=== PATIENT | female | born 1960 | race Caucasian/White ===

== ENCOUNTER → 2018-12-14 12:16 | Outpatient (CLI) | payer OTHER, SELFPAY ==
--- NOTE | 2018-12-14 | DI.US.S_ITS ---
PROCEDURE: US THYROID INDICATIONS: THYROID NODULE TECHNIQUE: Real-time scanning was performed of the thyroid gland, with image documentation. COMPARISON: None. FINDINGS: Right: Thyroid lobe measures 2.6 x 1 x 0.9 cm, and is homogeneous in echotexture. Left: Thyroid lobe measures 2.7 x 0.8 x 1.1 cm. Isthmus: 2 mm thick. Nodule number: 1 Location: Left mid thyroid Size: 1.3 x 0.7 x 0.6 cm, previously measured 1.4 x 0.1 x 0.7 cm. Composition: Solid Echogenicity: Hypoechoic Shape: wider than tall. Margins: Smooth Echogenic foci: None Total points: 4 ACR TI-RADS category: 4, moderately suspicious. An ultrasound followup is recommended in 1, 2, 3, and 5 years for a nodule of this size. Nodule number: 2 Location: Left inferior thyroid Size: 0.9 x 0.5 x 0.6 cm, previously measuring 0.9 x 0.6 x 0.7 cm. Composition: Solid Echogenicity: Hypoechoic Shape: wider than tall. Margins: Smooth Echogenic foci: None Total points: 4. ACR TI-RADS category: 4, moderately suspicious. By published criteria, no followup is recommended for a nodule of this size. IMPRESSION: 2 left-sided thyroid lesions are seen, which are stable compared to 06/07/17. Continued ultrasound followup is recommended, with the next followup in 1 year. ACR TI-RADS definitions and recommendations: TI-RADS 1 (benign): 0 points. FNA not needed. TI-RADS 2 (not suspicious): 2 points. FNA not needed. TI-RADS 3 (mildly suspicious): 3 points. * FNA if 2.5 cm or larger, follow up if 1.5 cm or larger (at 1, 3, and 5 years). TI-RADS 4 (moderately suspicious): 4-6 points. * FNA if 1.5 cm or larger, follow up if 1 cm or larger (at 1, 2, 3, and 5 years). TI-RADS 5 (highly suspicious): 7 points or more. * FNA if 1 cm or larger, follow up if 0.5 cm or larger (every year for 5 years). Dictated by: Jose Alfredo Bautista M.D. on 12/14/2018 at 12:41 Approved by: Jose Alfredo Bautista M.D. on 12/14/2018 at 12:45
== END ==
PROVIDERS: PCP Family Medicine; Visit Provider Family Medicine
DX: E04.2 Nontoxic multinodular goiter (principal)
CPT/HCPCS: 76536

== ENCOUNTER → 2018-12-21 15:03 | Outpatient (CLI) | payer OTHER, SELFPAY ==
--- NOTE | 2018-12-21 | DI.MG.S_ITS ---
BILATERAL DIGITAL SCREENING MAMMOGRAM 3D/2D WITH CAD: 12/21/2018 CLINICAL: Routine screening. Comparison is made to exams dated: 07/08/2016 mammogram, 05/29/2015 mammogram, and 03/19/2014 mammogram - [facility]. There are scattered fibroglandular elements in both breasts. Current study was also evaluated with a Computer Aided Detection (CAD) system. No significant masses, calcifications, or other findings are seen in either breast. There has been no significant interval change. IMPRESSION: NEGATIVE There is no mammographic evidence of malignancy. A 1 year screening mammogram is recommended. This exam was interpreted at Station ID: [id number]. NOTE: For mammograms, a report in lay terms will be sent to the patient. Approximately 15% of breast malignancies will not be visualized mammographically. In the management of a palpable breast mass, a negative mammogram must not discourage biopsy of a clinically suspicious lesion. Electronically Signed By: Haydee bennett/victorino:12/21/2018 21:00:46 copy to: Filemon Dudley letter sent: Normal Exam ACR BI-RADS Category 1: Negative 3341F
== END ==
PROVIDERS: PCP Family Medicine; Visit Provider Family Medicine
DX: Z12.31 Encounter for screening mammogram for malignant neoplasm of breast (principal)
CPT/HCPCS: 77063; 77067

== ENCOUNTER → 2019-02-14 14:52 | Outpatient (CLI) | payer OTHER, SELFPAY ==
--- NOTE | 2019-02-14 | DI.RAD.S_ITS ---
PROCEDURE: XR LUMBAR SPINE 2-3V INDICATIONS: LOWER BACK PAIN TECHNIQUE: 3 views of the lumbar spine were acquired. COMPARISON: None. FINDINGS: Bones: 5 [id number] vertebrae are present. There is grade one anterolisthesis at L4-L5. No vertebral body compression fractures. No suspicious bony lesions. There is mild degenerative disc disease at L2-L3 and L3-L4, and moderate degenerative disc disease at L4-L5. Moderate facet arthropathy at L4 L5 and L5-S1. Soft tissues: Overlying bowel gas pattern is normal. No suspicious soft tissue calcifications. IMPRESSION: Degenerative disc and facet disease in lumbar spine. Dictated by: Abner De Jesus M.D. on 02/14/2019 at 17:31 Approved by: Abner De Jesus M.D. on 02/14/2019 at 17:33
== END ==
PROVIDERS: PCP Family Medicine; Visit Provider Family Medicine
DX: M54.5 Low back pain (principal); M51.36 Other intervertebral disc degeneration, lumbar region; M47.816 Spondylosis without myelopathy or radiculopathy, lumbar region; M47.817 Spondylosis without myelopathy or radiculopathy, lumbosacral region
CPT/HCPCS: 72100

== ENCOUNTER → 2019-08-17 16:40 | Outpatient (CLI) | payer OTHER, SELFPAY ==
[2019-08-17 18:25] LABS: Urine N gonorrhoeae NOT DETECTED
[2019-08-17 18:26] LABS: Urine Chlamydia NOT DETECTED
== END ==
PROVIDERS: PCP Family Medicine; Visit Provider Nurse Practitioner
DX: Z11.3 Encounter for screening for infections with a predominantly sexual mode of transmission (principal)
CPT/HCPCS: 87255; 87491; 87591

== ENCOUNTER → 2019-08-17 16:54 | Outpatient (CLI) | payer OTHER, SELFPAY ==
[2019-08-17 18:37] LABS: HIV 1 & 2 Ab/Ag 4th Gen Combo NEGATIVE (NEGATIVE); Hep C Virus Ab w/Reflex Quant NEGATIVE s/c (NEGATIVE)
[2019-08-19 12:49] LABS: HSV 1 IgM Screen Negative (Negative); HSV 2 IgM Screen Negative (Negative)
[2019-08-19 20:51] LABS: RPR Screen Nonreactive (Nonreactive)
== END ==
PROVIDERS: PCP Family Medicine; Visit Provider Nurse Practitioner
DX: Z11.3 Encounter for screening for infections with a predominantly sexual mode of transmission (principal)
CPT/HCPCS: 36415; 86592; 86695; 86696; 86803; 87255; 87389; 87491; 87591

== ENCOUNTER → 2020-02-05 13:39 | Outpatient (CLI) | payer OTHER, SELFPAY ==
--- NOTE | 2020-02-05 | DI.US.S_ITS ---
PROCEDURE: US THYROID INDICATIONS: THYROID NODULE, HYPOTHYROIDISM TECHNIQUE: Real-time scanning was performed of the thyroid gland, with image documentation. COMPARISON: [facility], US, US THYROID, 12/14/2018, 12:32. FINDINGS: Right: Thyroid lobe measures 2.3 x 1.2 x 1.0 cm, and is diffusely heterogeneous in echotexture. Left: Thyroid lobe measures 3.8 x 0.9 x 1.3 cm, and is diffusely heterogeneous in echotexture. Isthmus: 3.0 mm thick. Nodule number: 1 Location: Left mid Size: Unchanged 1.3 x 0.6 x 0.8 cm. Composition: Solid Echogenicity: Hypoechoic Shape: wider than tall. Margins: Smooth Echogenic foci: None Total points: 4 ACR TI-RADS category: Moderately suspicious Nodule number: 2 Location: Left inferior Size: Unchanged at 0.9 x 0.4 x 0.6 cm Composition: Solid Echogenicity: Hypoechoic Shape: wider than tall. Margins: Smooth Echogenic foci: None Total points: 4 ACR TI-RADS category: Moderately suspicious IMPRESSION: Diffusely heterogeneous thyroid and stable appearance of left thyroid nodules. Recommend continued followup ultrasound as detailed below. ACR TI-RADS definitions and recommendations: TI-RADS 1 (benign): 0 points. FNA not needed. TI-RADS 2 (not suspicious): 2 points. FNA not needed. TI-RADS 3 (mildly suspicious): 3 points. * FNA if 2.5 cm or larger, follow up if 1.5 cm or larger (at 1, 3, and 5 years). TI-RADS 4 (moderately suspicious): 4-6 points. * FNA if 1.5 cm or larger, follow up if 1 cm or larger (at 1, 2, 3, and 5 years). TI-RADS 5 (highly suspicious): 7 points or more. * FNA if 1 cm or larger, follow up if 0.5 cm or larger (every year for 5 years). Dictated by: Blake Najera [facility] Interpreted: Chris Joya MD on 02/05/2020 at 16:38 Approved by: Chris Joya M.D. on 02/05/2020 at 17:40
== END ==
PROVIDERS: PCP Family Medicine; Referring Provider Family Medicine; Visit Provider Family Medicine
DX: E04.2 Nontoxic multinodular goiter (principal); E03.9 Hypothyroidism, unspecified
CPT/HCPCS: 76536

== ENCOUNTER → 2020-02-26 11:16 | Outpatient (CLI) | payer OTHER, SELFPAY ==
--- NOTE | 2020-02-26 | DI.CT.S_ITS ---
PROCEDURE: CT SINUS SCREEN WO CON INDICATIONS: Deviated nasal septum TECHNIQUE: Noncontrast 3.0 mm axial images acquired from the frontal sinuses to the mid-sella, with coronal and sagittal reformats. For radiation dose reduction, the following was used: automated exposure control, adjustment of mA and/or kV according to patient size. COMPARISON: None. FINDINGS: Image quality: Excellent. Maxillary Sinuses: No bony remodeling or destruction. Sinuses are clear. Ethmoid Air Cells: No bony remodeling or destruction. Sinuses are clear. Sphenoid Sinuses: No bony remodeling or destruction. Sinuses are clear. Frontal Sinuses: No bony remodeling or destruction. Sinuses are clear. Ostiomeatal Complexes: Ostiomeatal complexes are patent. No Onesimo cells. Miscellaneous: Visualized intra-orbital contents are normal. No carmelita bullosa or paradoxical turbinate curvature. There is mild to moderate rightward nasal septal deviation. IMPRESSION: No significant active paranasal sinus disease is seen. Mild to moderate rightward nasal septal deviation is seen. Dictated by: Jose Alfredo Bautista M.D. on 02/26/2020 at 12:14 Approved by: Jose Alfredo Bautista M.D. on 02/26/2020 at 12:15
== END ==
PROVIDERS: PCP Family Medicine; Referring Provider Otolaryngology; Visit Provider Otolaryngology
DX: J34.89 Other specified disorders of nose and nasal sinuses (principal); J34.2 Deviated nasal septum
CPT/HCPCS: 70486

== ENCOUNTER → 2020-03-01 14:07 | Outpatient (CLI) | payer OTHER, SELFPAY ==
[2020-03-02 09:21] LABS: COVID19 Sendout Not Detected (Not Detect)
== END ==
PROVIDERS: PCP Family Medicine; Visit Provider Physician Assistant
DX: Z01.812 Encounter for preprocedural laboratory examination (principal)
CPT/HCPCS: 87635

== ENCOUNTER 2020-03-04 12:27 | Day surgery (SDC) | payer OTHER, SELFPAY ==
--- NOTE | 2020-03-04 | PATH_ITS ---
[facility] Accession Number: [id number] . 01 Material submitted: . PART A: colon - ASCENDING COLON BIOPSIES PART B: colon - TRANSVERSE COLON BIOPSIES PART C: colon - DESCENDING COLON BIOPSIES PART D: colon - SIGMOID COLON BIOPSIES PART E: rectum - RECTAL BIOPSIES PART F: rectum - RECTAL POLYP BIOPSIES . 02 Diagnosis: A-E: Ascending, Transverse, Descending, Sigmoid Colon and Rectum, Biopsies: Colonic mucosa with no diagnostic abnormality. Negative for active, chronic, and microscopic colitis. Negative for dysplasia and malignancy. . F. Rectal Polyp, Biopsy: Tubular adenoma. [facility] 03/05/2020 1357 Local . 02 Electronically signed: . Iván Mayes MD, PhD, Pathologist NPI- [id number] . 01 Gross description: . Part A: ASCENDING COLON BIOPSIES: Received in formalin are multiple fragment(s) of devine, soft tissue measuring 0.1 x 0.1 x 0.1 cm to 0.2 x 0.2 x 0.2 cm submitted entirely in 1 cassette(s) Part B: TRANSVERSE COLON BIOPSIES: Received in formalin are 3 fragment(s) of devine, soft tissue measuring 0.1 x 0.1 x 0.1 cm to 0.2 x 0.1 x 0.1 cm submitted entirely in 1 cassette(s) Part C: DESCENDING COLON BIOPSIES: Received in formalin are 4 fragment(s) of devine, soft tissue measuring 0.1 x 0.1 x 0.1 cm to 0.3 x 0.2 x 0.2 cm submitted entirely in 1 cassette(s) Part D: SIGMOID COLON BIOPSIES: Received in formalin are 4 fragment(s) of devine, soft tissue measuring 0.1 x 0.1 x 0.1 cm to 0.3 x 0.2 x 0.2 cm submitted entirely in 1 cassette(s) Part E: RECTAL BIOPSIES: Received in formalin is 1 fragment(s) of devine, soft tissue measuring 0.2 x 0.2 x 0.1 cm submitted entirely in 1 cassette(s) Part F: RECTAL POLYP BIOPSIES: Received in formalin are 3 fragment(s) of devine, soft tissue measuring 0.1 x 0.1 x 0.1 cm to 0.2 x 0.2 x 0.2 cm submitted entirely in 1 cassette(s) /SHARON 03/05/2020 0114 Local . 02 Pathologist provided ICD-10: R19.4, D12.8 . 02 CPT . 593778, 000478, 659457, 199817, 830219, 436004 Performed at: 01 [facility] [address] [id number] MD Mu Christian MD Phone: [phone] Performed at: 02 [facility] [address] [place], [place] [id number] MD Genoveva Perez MD Phone: [phone]
--- NOTE | 2020-03-04 11:53 | PM.PREOP ---
Pre-operative Note COVID-19 COVID-19 status: Negative Result date/Date tested (Pos, Neg/Pending): 03/01/20 Interval Note History & Physical reviewed/Exam performed by Physician: Yes Changes to H&P: No ASA Class (for procedural sedation): III
--- NOTE | 2020-03-04 11:54 | PM.OP.ENDO ---
Operative Date/Time/Diagnoses Date of procedure: 03/04/20 Time of procedure: 13:46 Pre-op diagnosis: 1. Chronic diarrhea 2. Screening for colon cancer Post-op diagnosis: other (1. Sigmoid diverticulosis, mild, 2. Rectal polyp, 2 cm, unresected, targeted biopsy taken) Procedure & Clinicians Study performed: Colonoscopy Same procedure as scheduled: Yes Indications: 1. Chronic diarrhea 2. Screening for colon cancer Surgeon: Bettie Sorensen Procedure Notes SCOAP/Timeout: 13:46 Procedure in detail: ENDOSCOPIST: Bettie Sorensen MD Sedation RN: Savannah Barksdale RN Sedation start time: 13:46 Sedation end time: 14:28 PROCEDURE: Colonoscopy with biopsy INDICATIONS: 1. Chronic diarrhea 2. Screening for colon cancer MEDICATION: Levsin 0.125 mg sublingual, incremental doses of Versed and fentanyl until appropriate level sedation achieved. ASA CLASS: 2 CECAL WITHDRAWAL TIME: 22 minutes COMPLICATIONS: None. EXTENT OF PROCEDURE: Cecum. QUALITY OF PREP: Good with portions of liquid stool. PROCEDURE: Prior to insertion of the colonoscope, a digital rectal examination was accomplished with circumferential palpation of the distal rectal mucosa without significant findings being noted. The high-definition pediatric colonoscope was passed into the rectum in the usual fashion and advanced over to the cecum without difficulty. The ileocecal valve, appendiceal stoma, and medial wall all could be inspected and no abnormalities were seen. Random biopsies were taken throughout withdrawal. ASCENDING COLON: As the colonoscope was withdrawn, care was taken to expose and inspect the haustral folds and no abnormalities were seen. HEPATIC FLEXURE: Normal no polyps, diverticula or other abnormalities. TRANSVERSE COLON: Normal no polyps, diverticula or other abnormalities. DESCENDING COLON: Normal no polyps, diverticula or other abnormalities. SIGMOID COLON: Minor diverticulosis, otherwise normal, no polyps, diverticula or other abnormalities. RECTUM: A 2 cm polyp was noted at the anal verge, sessile and spreading. It was lifted with methylene blue and there was a central area that did not lift. Lesion was pulsatile and bled briskly after targeted biopsy taken x 2. Hemostasis was achieved after application of cold water and suction. Lesion was left unresected secondary to risk of perforation and bleeding. J maneuver was produced. There was no significant perianal disease. The J maneuver was broken. The remainder of the rectum was inspected and there was no external hemorrhoid disease. The scope was withdrawn. IMPRESSION: 1. Rectal polyp x1, 2 cm, lifted with methylene blue with central area that did not lift, friable, unresected, targeted biopsy taken x2. 2. Sigmoid diverticulosis, minor PLAN: 1. Follow-up in clinic status post pathology results. The possibility of a missed lesion including a malignancy has been discussed with the patient previously. Potential alarm symptoms have been discussed and should be reported immediately. Complications: none Post-procedure Recommendations: Will call with biopsy results Follow up: weeks (2) Disposition: PACU
[2020-03-04] MEDS: LACTATED RINGERS 1,000 ML 200 ML IV (12:50)
[2020-03-04] MEDS: HYOSCYAMINE 0.125 MG TABLET PO (12:52)
[2020-03-04 12:53] VITALS: BP 143/82; PULSE 80; RESP 20; TEMP 36.9; O2SAT 97; BMI 39.8
[2020-03-04] MEDS: MIDAZOLAM 5 MG/5 ML VIAL IV (13:40)
[2020-03-04] MEDS: fentaNYL 250 MCG/5 ML INJ IV (13:45)
[2020-03-04 14:32] VITALS: BP 131/79; PULSE 66; RESP 18; TEMP 36.7; O2SAT 97
[2020-03-04 14:37] VITALS: BP 130/80; PULSE 81; RESP 16; O2SAT 97
[2020-03-04 14:44] VITALS: BP 140/72; PULSE 75; RESP 14; TEMP 36.4; O2SAT 98
[2020-03-04 15:16] VITALS: BP 143/79; PULSE 71; RESP 16; TEMP 36.6; O2SAT 98
--- NOTE | 2020-03-04 15:30 | SUR.PHASEII ---
Stable phase 2, ride called pt left when ready and left in stable condition.
== END 2020-03-04 15:20 | disposition home or self-care (01) ==
PROVIDERS: PCP Family Medicine; Referring Provider Student in an Organized Health Care Education/Training Program; Visit Provider Student in an Organized Health Care Education/Training Program
PROC: 0DJD8ZZ Inspection of Lower Intestinal Tract, Via Natural or Artificial Opening Endoscopic (ICD-10-PCS; CPT 45378; principal; 2020-03-04 13:15)
DX: K57.30 Diverticulosis of large intestine without perforation or abscess without bleeding (principal); D12.8 Benign neoplasm of rectum
CPT/HCPCS: 45381; 45380; J2250; J3010

== ENCOUNTER → 2020-03-20 15:13 | Outpatient (CLI) | payer OTHER, SELFPAY ==
[2020-03-22 08:10] LABS: COVID19 Sendout Not Detected (Not Detect)
== END ==
PROVIDERS: PCP Family Medicine; Visit Provider Physician Assistant
DX: Z11.59 Encounter for screening for other viral diseases (principal)
CPT/HCPCS: 87635

== ENCOUNTER → 2020-03-21 14:19 | Outpatient (CLI) | payer OTHER, SELFPAY ==
--- NOTE | 2020-03-21 | DI.MG.S_ITS ---
BILATERAL DIGITAL SCREENING MAMMOGRAM 3D/2D WITH CAD: 03/21/2020 CLINICAL: Routine screening. Comparison is made to exams dated: 12/21/2018 mammogram, 07/08/2016 mammogram, and 05/29/2015 mammogram - [facility]. There are scattered fibroglandular elements in both breasts. Current study was also evaluated with a Computer Aided Detection (CAD) system. No significant masses, calcifications, or other findings are seen in either breast. There has been no significant interval change. IMPRESSION: NEGATIVE There is no mammographic evidence of malignancy. A 1 year screening mammogram is recommended. This exam was interpreted at Station ID: [id number]. NOTE: For mammograms, a report in lay terms will be sent to the patient. Approximately 15% of breast malignancies will not be visualized mammographically. In the management of a palpable breast mass, a negative mammogram must not discourage biopsy of a clinically suspicious lesion. Electronically Signed By: Chris connor/victorino:03/21/2020 17:25:03 copy to: Filemon Dudley letter sent: Normal Exam ACR BI-RADS Category 1: Negative 3341F
== END ==
PROVIDERS: PCP Student in an Organized Health Care Education/Training Program; Referring Provider Family Medicine; Visit Provider Family Medicine
DX: Z12.31 Encounter for screening mammogram for malignant neoplasm of breast (principal)
CPT/HCPCS: 77063; 77067

== ENCOUNTER → 2020-04-12 15:10 | Outpatient (CLI) | payer OTHER, SELFPAY ==
[2020-04-13 08:33] LABS: COVID19 Sendout Not Detected (Not Detect)
== END ==
PROVIDERS: PCP Student in an Organized Health Care Education/Training Program; Visit Provider Physician Assistant
DX: Z11.59 Encounter for screening for other viral diseases (principal)
CPT/HCPCS: 87635

== ENCOUNTER 2020-04-15 09:57 | Day surgery (SDC) | payer OTHER, SELFPAY ==
[2020-04-10 09:19] VITALS: BMI 39.1
[2020-04-15] VITALS (7 sets, daily range): BP systolic 106–143; BP diastolic 58–79; PULSE 70–78; RESP 12–18; TEMP 36.3–36.6; O2SAT 95–99; BMI 38.0
--- NOTE | 2020-04-15 | PATH_ITS ---
[facility] Accession Number: [id number] . 01 Material submitted: . rectum - RECTAL POLYP . 01 Clinical history: . SD LONG SUTURE TOWARD ANUS; SHORT SUTURE LEFT LATERAL POSTERIOR . 02 Diagnosis: Rectum, Polyp, Excision: Tubulovillous adenoma. Please see comment. No evidence of malignancy or high-grade dysplasia. MRV 04/17/2020 1321 Local . 02 Comment: The inked margin of the largest tissue fragment is negative for dysplasia. Three separate free floating fragments were present within the container which are also positive for adenoma/low grade dysplasia. . . 02 Electronically signed: . Genoveva Perez MD, Pathologist NPI- [id number] . 01 Gross description: . Received in formalin, labeled with the patient's name, MRN and rectal polyp, long suture toward anus, short suture left lateral posterior, is a 1.9 x 1.3 x 0.7 cm pink-devine polyp with a long suture marking toward the anus and a short suture marking left lateral posterior. The left lateral posterior aspect is inked blue and the opposing aspect is inked black. Separate within the container are three devine-pink irregular fragments of tissue ranging in size from 0.5 cm to 0.7 cm in greatest dimension. The entire specimen is submitted as follows: . A1-A3: entire polyp submitted from long suture to opposing end (A1 long suture tip, A3 opposing long suture tip). A4: separate fragments of tissue within the container. (SD/cmc10 [id number]) /MRV 04/16/2020 1313 Local . 02 Pathologist provided ICD-10: D12.8 . 02 CPT . 799092 Performed at: [address] [facility] [place] [id number] MD Mu Christian MD Phone: [phone] Performed at: 02 [facility] [address] [place] [id number] MD Genoveva Perez MD Phone: [phone]
[2020-04-15] MEDS: LACTATED RINGERS 1,000 ML 42 ML IV (10:40)
[2020-04-15] MEDS: ACETAMINOPHEN 325 MG TABLET 975 MG PO (10:50)
--- NOTE | 2020-04-15 10:56 | PM.HP.1 ---
History of Present Illness History of Present Illness Date Patient Seen: 04/15/20 Time Patient Seen: 10:56 Chief complaint: SDC Narrative: The patient is a woman here for removal of an adenoma in her anus. Was felt to be best approached surgically. Patient History Medical History Abnormal Pap smear of cervix (Acute ~2009) ADHD (Chronic) Anxiety (Chronic) Cataracts, bilateral (Chronic ~2014) Chicken pox (Resolved) Chlamydia (Inactive ~1997) Chronic back pain (Chronic ~1999) Depression (Chronic) Easy bruisability (Acute) Fibroids (Inactive ~2009) Fractures (Resolved) Genital warts (Inactive ~1995) H/O vaginal delivery (Acute) Human papilloma virus (Inactive ~1995) Migraines (Inactive ~1970) OCD (obsessive compulsive disorder) (Chronic) Osteoarthritis (Chronic ~2011) Psoriasis (Chronic ~2017) Restless leg syndrome (Chronic ~1999) Rosacea (Chronic ~2011) Shingles (Inactive) Shoulder pain (Chronic ~1999) Sleep apnea (Acute) Surgical History History of (Acute) History of colonoscopy (Acute) History of tonsillectomy and adenoidectomy (Acute) Hx of arthroscopy of left knee (Acute 2013) Hx of arthroscopy of right knee (Acute 10/2016) Hx of shoulder surgery (Acute) S/P epidural steroid injection (Acute) Family & Social History Family History Father History of heart disease Hypertension Loud snoring Heart disease Mother History of heart disease Mental health problem COPD (chronic obstructive pulmonary disease) Heart disease Depression Anxiety Dementia Grandfather Brain aneurysm Grandmother Cancer Social History: household members significant other Tobacco & Substance use: Smoking Status Never smoker alcohol intake current alcohol intake frequency holiday/special occasion Substance Use Type does not use Meds Home Medications and Allergies Home Medications Medication Instructions Recorded Confirmed Type levothyroxine 200 mcg PO DAILY #0 01/05/10 04/15/20 History sertraline 200 mg PO DAILY #0 01/05/10 04/15/20 History ketorolac 0.5 % eye drops 1 % EYE-BOTH PRN PRN 08/17/19 04/15/20 History lamotrigine 100 mg tablet 100 mg PO DAILY tab 09/27/19 04/15/20 History trazodone 50 mg tablet 25 mg PO DAILY 02/22/20 04/15/20 History dextroamphetamine-amphetamine 30 mg PO DAILY 03/04/20 04/15/20 History [Adderall XR] clonazepam 0.25 mg PO PRN PRN 04/10/20 04/15/20 History duloxetine 60 mg PO DAILY 04/15/20 04/15/20 History Allergies Allergy/AdvReac Type Severity Reaction Status Date / Time meperidine [From Demerol] Allergy Mild itching Verified 04/15/20 10:54 Review of Systems Review of Systems ROS: Yes All systems reviewed with the patient and are negative except as otherwise documented Exam Vital Signs (past 8 hours): - 04/15/20 10:33 Temperature 97.4 F L Pulse Rate 73 Respiratory Rate 12 Blood Pressure 140/78 Pulse Oximetry 99 Oxygen Delivery Method Room Air Narrative Exam Narrative: Pleasant cooperative patient no apparent distress. Lungs are clear to auscultation. No rales or rhonchi. Heart regular rate and rhythm no murmur gallop. Abdomen is soft nontender without mass. No obvious hernias. Patient is alert and oriented x3. Assessment & Plan Assessment & Plan narrative: Patient with rectal adenoma for excision. I have talked to her about the procedure. Risks of bleeding infection recurrence discussed. She appears to understand wishes to proceed
--- NOTE | 2020-04-15 11:00 | PM.PREOP ---
Pre-operative Note COVID-19 COVID-19 status: Negative Result date/Date tested (Pos, Neg/Pending): 04/12/20 Interval Note History & Physical reviewed/Exam performed by Physician: Yes Changes to H&P: No
--- NOTE | 2020-04-15 11:51 | SUR.OPER ---
Prone on padded OR bed, head in foam head support, gel chest rolls, gel pad under knees, pillow under lower legs, toes free of pressure, arms secured on padded arm boards at <90 degrees abduction. Safety belt at thigh.
[2020-04-15] MEDS: BUPIVACAINE 0.5% W/ EPI (PF) 30 ML VIAL INJ (12:07)
[2020-04-15] MEDS: DIBUCAINE 1% OINT 28 GM 1 APPLIC TOP (12:08)
[2020-04-15] MEDS: EPINEPHrine 1 MG/ML SUBCUT (12:25)
--- NOTE | 2020-04-15 12:28 | PM.OP.1 ---
Operative Date/Time/Diagnoses Date of procedure: 04/15/20 Time of procedure: 12:29 Pre-op diagnosis: Rectal adenoma post biopsy. Post-op diagnosis: same (Rule out malignancy in part of a large polyp. Excision of a polyp too large to snare) Procedure & Clinicians Procedure: Anal Exam under anesthesia. Anoscopy with excision of large flat polyp Same procedure as scheduled: Yes Indications: Polyp biopsy consistent with an adenoma. Unable to be safely be removed with the snare during colonoscopy. Patient brought in for excision. Surgeon: Pedro Herrera Click Yes if Unassisted: Yes Anesthesia Type: General Operative Notes Findings: Large flat polyp. Appeared to be excised in its entirety. Closure Type: not applicable Specimen(s): other (Polyp) Estimated Blood Loss (mL): 50 Blood products transfused: none Procedure in detail: The patient was placed in melinda-knife prone on the operating room table after undergoing general endotracheal anesthesia. She was prepped and draped in the usual fashion. Digital exam revealed a decreased sphincter tone. The mass was palpable left lateral location. Anoscope was inserted and a circumferential exam was performed. The only lesion seen was a large flat polyp. The base when the mucosa was stretched was at least 3 cm x 2 cm. It was located just proximal to a visible hemorrhoidal vessel. It was in rectal mucosa however and not in the anal canal. Silk sutures were placed proximal posterior anterior and above this lesion to jimmy its edges. I then injected saline with epinephrine under the lesion to elevated and help control bleeding. I was only able to do this on the distal portion of the lesion and could not inject at its upper limits. Using Metzenbaum scissors I incised in normal appearing tissue near the anal verge and incised the mucosa. Lifting the tissue up using principally sharp and some blunt dissection I lifted this lesion off the underlying muscle as best I could. I then incised on each of its sides in normal appearing mucosa. I then dissected proximally and transected its last attachments. It was marked by pacing a suture on the anal side of the polyp and on the left lateral posterior side. I was not so much interested in margins unless the lesion had some malignant potential. There was some residual tissue at the upper extreme of my transection that I further excised. This was submitted as small pieces in the same specimen container as the larger 1. With careful inspection and irrigation I could not see any residual appearing polypoid tissue. I closed the defect in the mucosa to control bleeding with 2 0 chromic [id number] sutures. There was no bleeding at completion. The anal sphincters were not involved in my excision or closure. I injected local anesthetic at the head of this dissection in the perianal skin. Nupercainal was applied to the anal verge and a dressing was applied. Patient tolerated the procedure well. Of note, there is one 2-0 chromic that is a long suture hanging out of the anus. This suture was placed at the proximal most portion of my dissection in case the patient bleeds that it can be used for traction to identify the upper limits of my mucosal dissection. Complications: none Post-operative Condition: stable Disposition: PACU Plan for aftercare: Follow-up In the office
[2020-04-15] MEDS: OXYCODONE IR 5 MG TABLET PO (12:50)
== END 2020-04-15 13:58 | disposition home or self-care (01) ==
PROVIDERS: PCP Family Medicine; Referring Provider Specialist; Visit Provider Specialist
PROC: (CPT 45990; principal; 2020-04-15 11:15)
DX: D12.8 Benign neoplasm of rectum (principal); G47.33 Obstructive sleep apnea (adult) (pediatric); F41.9 Anxiety disorder, unspecified; F32.9 Major depressive disorder, single episode, unspecified
CPT/HCPCS: 46615; J0171; J0330; J1100; J2250; J2405; J2704; J3010

== ENCOUNTER 2020-04-20 13:03 | Observation (INO) | payer OTHER, SELFPAY ==
[2020-04-20] VITALS (14 sets, daily range): BP systolic 107–136; BP diastolic 62–75; PULSE 70–85; RESP 12–18; TEMP 36.1–36.6; O2SAT 93–100; BMI 37.8
[2020-04-20 14:15] LABS: Add Manual Diff / Slide Review NO; Basophils Absolute Auto 0 /uL (0-100); Basophils Percent Auto 0.4 % (0-2); Eosinophils Absolute Auto 200 /uL (0-450); Eosinophils Percent Auto 1.9 % (2-4); Lymphocytes Absolute Auto 2000 /uL (1100-4500); Lymphocytes Percent Auto 21.5 % (25-40); Mean Corpuscular HGB Conc 33.3 % (30-36); Mean Corpuscular Hemoglobin 27.8 PG (26-34); Mean Corpuscular Volume 83.4 fL (80-100); Monocytes Absolute Auto 500 /uL (0-900); Monocytes Percent Auto 5.3 % (3-14); Neutrophils Absolute Auto 6500 /uL (1500-7000); Neutrophils Percent Auto 70.9 % (50-75); Platelet Count 326 X10^3/uL (150-400); Red Blood Cell Count 5.03 X10^6/uL (4.0-5.2); Red Cell Distribution Width 14.4 % (11.6-14.8); White Blood Cell Count 9.1 X10^3/uL (4.5-11.0)
--- NOTE | 2020-04-20 14:22 | PC.NURSE ---
pt moved into room ekg performed by resp
[2020-04-20 14:26] LABS: INR 1.1 (0.9-1.3); Prothrombin Time 12.5 SECONDS (10.1-12.7)
[2020-04-20 14:29] LABS: PTT Partial Thromboplastin Tim 42 SECONDS (26.4-36.2)
[2020-04-20 14:30] LABS: Alanine Aminotransferase 25 IU/L (<35); Albumin 4.3 g/dL (3.5-5.0); Albumin Globulin Ratio 1.4 (1.0-2.8); Alkaline Phosphatase 115 U/L (38-126); Aspartate Aminotransferase 32 IU/L (14-36); BUN Creatinine Ratio 31.4 (6-22); Bilirubin Total 0.5 mg/dL (0.2-1.3); Blood Urea Nitrogen 22 mg/dL (7-17); Calcium 9.2 mg/dL (8.4-10.2); Carbon Dioxide 26 mmol/L (22-32); Chloride 106 mmol/L (98-107); Estimated Glomerular Filt Rate > 60.0 mL/min (>60); Globulin 3.1 g/dL (1.7-4.1); Glucose 108 mg/dL (70-100); HEMOLYSIS < 15 (0-50); Potassium 4.5 mmol/L (3.4-5.1); Sodium 138 mmol/L (137-145); Total Protein 7.4 g/dL (6.3-8.2)
--- NOTE | 2020-04-20 14:35 | ED.CONSULT ---
ED Provider Consult/Code Note General Date Patient Seen: 04/20/20 Time Patient Seen: 14:37 Reason for Admission: Severe rectal bleeding post-surgery Events leading to Consult/Code: 60-year-old woman contacted general surgery with complaints of rectal bleeding after having a rectal polyp removed on 04/15. She is hemodynamically stable and seen by Dr. Mcclellan, general surgeon, in the emergency department with plans to take her to the operating room. Labs are drawn in the emergency department. Patient was not seen or evaluated by emergency physician today.
--- NOTE | 2020-04-20 14:40 | P.HP_ITS ---
History of Present Illness History of Present Illness Date Patient Seen: 04/20/20 Time Patient Seen: 14:40 Chief complaint: Severe rectal bleeding post-surgery Narrative: 60-year-old white female patient had a rectal adenomatous polyp removed earlier this week on 04/15/2020. This was felt to be a benign lesion. Based on the operative note it reads the base of the lesion was 3 by 2 cm. The site was closed with interrupted chromic sutures. This morning the patient developed significant rectal bleeding. She called me late in the morning and I advise that she apply ice compresses and sit and rest for an hour. She called again passing clots and I instructed her to come to the emergency department. I observed a bowel movement that she produced in the emergency department which is copious blood and clots. Could be described as a cereal bowl full of clot. Patient is being prepared for anesthesia and suturing of this rectal incision. Patient is otherwise healthy although suffers from depression and is on numerous antidepressants Patient History Medical History Abnormal Pap smear of cervix (Acute ~2009) ADHD (Chronic) Anxiety (Chronic) Cataracts, bilateral (Chronic ~2014) Chicken pox (Resolved) Chlamydia (Inactive ~1997) Chronic back pain (Chronic ~1999) Depression (Chronic) Easy bruisability (Acute) Fibroids (Inactive ~2009) Fractures (Resolved) Genital warts (Inactive ~1995) H/O vaginal delivery (Acute) Human papilloma virus (Inactive ~1995) Migraines (Inactive ~1970) OCD (obsessive compulsive disorder) (Chronic) Osteoarthritis (Chronic ~2011) Psoriasis (Chronic ~2017) Restless leg syndrome (Chronic ~1999) Rosacea (Chronic ~2011) Shingles (Inactive) Shoulder pain (Chronic ~1999) Sleep apnea (Acute) Surgical History History of (Acute) History of colonoscopy (Acute) History of tonsillectomy and adenoidectomy (Acute) Hx of arthroscopy of left knee (Acute 2013) Hx of arthroscopy of right knee (Acute 10/2016) Hx of shoulder surgery (Acute) S/P epidural steroid injection (Acute) Family & Social History Family History Father History of heart disease Hypertension Loud snoring Heart disease Mother History of heart disease Mental health problem COPD (chronic obstructive pulmonary disease) Heart disease Depression Anxiety Dementia Grandfather Brain aneurysm Grandmother Cancer Social History: household members significant other Safety & Behavioral: Feels Safe in Current Yes Environment Been Physically Hurt or No Threatened By a Person Tobacco & Substance use: Smoking Status Never smoker alcohol intake current alcohol intake frequency holiday/special occasion Substance Use Type does not use Meds Home Medications and Allergies Home Medications Medication Instructions Recorded Confirmed Type levothyroxine 200 mcg PO DAILY #0 01/05/10 04/15/20 History sertraline 200 mg PO DAILY #0 01/05/10 04/15/20 History ketorolac 0.5 % eye drops 1 % EYE-BOTH PRN PRN 08/17/19 04/15/20 History lamotrigine 100 mg tablet 100 mg PO DAILY tab 09/27/19 04/15/20 History trazodone 50 mg tablet 25 mg PO DAILY 02/22/20 04/15/20 History dextroamphetamine-amphetamine 30 mg PO DAILY 03/04/20 04/15/20 History [Adderall XR] clonazepam 0.25 mg PO PRN PRN 04/10/20 04/15/20 History duloxetine 60 mg PO DAILY 04/15/20 04/15/20 History oxycodone-acetaminophen [Percocet] See Rx Instructions .ROUTE 04/15/20 Rx .COMPLEX PRN #14 tab Allergies Allergy/AdvReac Type Severity Reaction Status Date / Time meperidine [From Demerol] Allergy Mild itching Verified 04/20/20 13:26 Review of Systems Review of Systems ROS: Yes All systems reviewed with the patient and are negative except as otherwise documented Exam Vital Signs (past 8 hours): - 04/20/20 13:26 Temperature 97.6 F Pulse Rate 85 Respiratory Rate 16 Blood Pressure 136/70 Pulse Oximetry 100 Oxygen Delivery Method Room Air Narrative Exam Narrative: Patient is alert and oriented has no complaints of pain. She is however quite anxious because of the significant rectal bleeding that she is experiencing. Lungs are clear Heart regular rhythm no murmur Abdomen normal exam although she is obese. I observed a copious bloody bowel movement with no stool. There was a large amount of clot and bright red blood. I did not do a rectal exam but instead will examine her under anesthesia. Objective Labs Result Diagrams: 04/20/20 13:50 04/20/20 14:07 Labs: Laboratory Results - last 24 hr 04/20/20 04/20/20 04/20/20 13:50 14:07 14:07 WBC 9.1 RBC 5.03 Hgb 14.0 Hct 42.0 MCV 83.4 MCH 27.8 MCHC 33.3 RDW 14.4 Plt Count 326 Neut % (Auto) 70.9 Lymph % (Auto) 21.5 L [place] % (Auto) 5.3 Eos % (Auto) 1.9 L Baso % (Auto) 0.4 Neut # (Auto) 6500 Lymph # (Auto) 2000 [place] # (Auto) 500 Eos # (Auto) 200 Baso # (Auto) 0 PT 12.5 INR 1.1 APTT 42 H Sodium 138 Potassium 4.5 Chloride 106 Carbon Dioxide 26 BUN 22 H Creatinine 0.70 Estimated GFR > 60.0 BUN/Creatinine Ratio 31.4 H Glucose 108 H Calcium 9.2 Total Bilirubin 0.5 AST 32 ALT 25 Alkaline Phosphatase 115 Total Protein 7.4 Albumin 4.3 Globulin 3.1 Albumin/Globulin Ratio 1.4 Assessment & Plan Assessment & Plan narrative: Postoperative hemorrhage after a rectal polypectomy. Patient understands the need for another anesthetic and surgical intervention to over-sew this bleeding site. She understands and agrees to the procedure without any questions.
[2020-04-20 15:27] LABS: COVID19 -Nasal RAPID Negative (Negative)
--- NOTE | 2020-04-20 15:46 | CM.IDA ---
Initial DCP Assessment Note Patient is a 60 yo female, resident of [place]. Patient presents w/post operative bleeding, had a rectal polyp removed earlier this week. patient being taken to the OR this afternoon by Dr Mcclellan for additional surgical intervention and to over-sew this bleeding site. PCP: Dr Luis Enrique Calvillo: Gerardo According to chart review, expect that patient will DC back home once recovered and medically cleared to do so. Patient off the floor for surgery this afternoon. [facility] team will follow closely for needs and will remain available in case any DC needs or concerns arise MARIBEL Haley
[2020-04-20] MEDS: LACTATED RINGERS 1,000 ML 100 ML IV (16:04)
--- NOTE | 2020-04-20 16:38 | SUR.OPER ---
Lithotomy on padded OR bed, head on pillow, arms secured on padded arm boards at <90 degrees abduction. Legs secured in padded yellow fins stirrups.
[2020-04-20] MEDS: DIBUCAINE 1% OINT 28 GM 1 APPLIC TOP (17:05)
--- NOTE | 2020-04-20 17:10 | PM.OP.1 ---
Operative Date/Time/Diagnoses Date of procedure: 04/20/20 Time of procedure: 17:10 Pre-op diagnosis: Rectal bleeding at operative polypectomy excision site Post-op diagnosis: same Procedure & Clinicians Procedure: Rectal examination under anesthesia and over-sewing of excision site of rectal tumor Same procedure as scheduled: Yes Surgeon: Quintin Mcclellan Click Yes if Unassisted: Yes Anesthesia Type: General Operative Notes Findings: Complete dehiscence of rectal wound with copious blood and clots in the rectal vault and arterial bleeding from a hemorrhoidal artery. Closure Type: primary Specimen(s): none sent Estimated Blood Loss (mL): 100 Blood products transfused: none Procedure in detail: The patient was properly identified during surgical pause placed in the dorsal lithotomy position under general anesthesia. Upon insertion of a rectal retractor copious bright red arterial bleeding was encountered with a marked amount of clot filling the rectal vault. This was irrigated free. There were no sutures present in the rectal excision site the wound was gaping. Identifying the more distant point of the rectal excision a put a transfixing suture there and used it to retract the remaining portion of the open rectal wound. Using an Allis clamp on the portion of the wound near the dentate line then I could identify the entire excision site. There was an arterial bleeder on the more medial posterior portion of the rectal wound. The excision site wound in the rectum was then closed with a running locking 2 0 Vicryl sutures for excellent hemostasis. I removed the retractor and after a few moments reinserted to be sure there was hemostasis. There was excellent hemostasis. I irrigated the rectum again and found no sign of bleeding. I packed the rectum with Gelfoam. Patient tolerated the procedure well and was returned to the recovery room in good condition. No blood was transfused. Complications: none Post-operative Condition: stable Disposition: PACU
[2020-04-20] MEDS: OXYCODONE/ACETAMINOPHEN 5/325 TABLET 1 TAB PO ×2 (17:35→18:44)
[2020-04-20] MEDS: DEXTROSE 5%-0.45% NS 1,000 ML 84 ML IV (18:52)
[2020-04-20] MEDS: lamoTRIgine 100 MG TABLET PO (20:54)
[2020-04-20] MEDS: TRAZODONE 50 MG TABLET 25 MG PO (20:54)
[2020-04-20] MEDS: DOCUSATE 100 MG CAPSULE PO (20:55)
--- NOTE | 2020-04-20 23:21 | PC.NURSE ---
Admit/Evening Shift Note- Patient arrived to room via bed from PACU at 1800. admit questions done, meds reviewed, skin check done, and physical assessment completed. Patient oriented to bed and bed controls, room, bathroom, lights, phone, menu, and call carrasco/TV remote. NO complaints of N/V. PRN painmedications provided as ordered. Safety measures in place. :Patient agrees to call for assistance. Call carrasco and phone within reach. Will continue to monitor,.
[2020-04-21] VITALS: BP 133/68; PULSE 73; RESP 16; TEMP 36.2; O2SAT 98
[2020-04-21] MEDS: OXYCODONE/ACETAMINOPHEN 5/325 TABLET 2 TAB PO ×3 (00:36→10:44)
[2020-04-21 05:00] VITALS: BP 132/56; PULSE 71; RESP 16; TEMP 36.2; O2SAT 97
[2020-04-21] MEDS: LEVOTHYROXINE 100 MCG TABLET 200 MCG PO (06:21)
[2020-04-21] MEDS: DEXTROSE 5%-0.45% NS 1,000 ML 84 ML IV (06:27)
[2020-04-21 08:07] LABS: Add Manual Diff / Slide Review NO; Basophils Absolute Auto 100 /uL (0-100); Basophils Percent Auto 0.6 % (0-2); Eosinophils Absolute Auto 300 /uL (0-450); Eosinophils Percent Auto 3.6 % (2-4); Hematocrit 33.8 % (36-46); Hemoglobin 11.2 g/dL (12.0-16.0); Lymphocytes Absolute Auto 1900 /uL (1100-4500); Lymphocytes Percent Auto 21.7 % (25-40); Mean Corpuscular Hemoglobin 27.6 PG (26-34); Mean Corpuscular Volume 83.6 fL (80-100); Monocytes Absolute Auto 500 /uL (0-900); Monocytes Percent Auto 5.7 % (3-14); Neutrophils Absolute Auto 5900 /uL (1500-7000); Neutrophils Percent Auto 68.4 % (50-75); Platelet Count 292 X10^3/uL (150-400); Red Blood Cell Count 4.05 X10^6/uL (4.0-5.2); Red Cell Distribution Width 14.5 % (11.6-14.8); White Blood Cell Count 8.6 X10^3/uL (4.5-11.0)
[2020-04-21 08:10] VITALS: PULSE 64; RESP 18; O2SAT 99
[2020-04-21] MEDS: SERTRALINE 50 MG TABLET 200 MG PO (08:18)
[2020-04-21] MEDS: DULOXETINE 30 MG CAPSULE 60 MG PO (08:19)
[2020-04-21] MEDS: DOCUSATE 100 MG CAPSULE PO (08:19)
[2020-04-21 08:25] VITALS: BP 131/77; PULSE 73; RESP 17; TEMP 36.4; O2SAT 97
[2020-04-21] MEDS: SODIUM CHLORIDE 0.9% FLUSH 10 ML IV (09:17)
--- NOTE | 2020-04-21 09:31 | PM.DS.1 ---
History of Present Illness History of Present Illness Date Patient Seen: 04/21/20 Time Patient Seen: 09:31 Chief complaint: Severe rectal bleeding post-surgery Narrative: 60-year-old white female patient had a rectal adenomatous polyp removed earlier this week on 04/15/2020. This was felt to be a benign lesion. Based on the operative note it reads the base of the lesion was 3 by 2 cm. The site was closed with interrupted chromic sutures. This morning the patient developed significant rectal bleeding. She called me late in the morning and I advise that she apply ice compresses and sit and rest for an hour. She called again passing clots and I instructed her to come to the emergency department. I observed a bowel movement that she produced in the emergency department which is copious blood and clots. Could be described as a cereal bowl full of clot. Patient is being prepared for anesthesia and suturing of this rectal incision. Patient is otherwise healthy although suffers from depression and is on numerous antidepressants Discharge Providers Provider Date of admission: 04/20/20 14:29 Discharge Date: 04/21/20 Primary care physician: Filemon Dudley MD Consults: 04/20/20 16:16 Consult to Respiratory Therapy Evaluate & Treat Comment: Physician Instructions: Evaluate and treat Discharge provider: Quintin Mcclellan MD Summary Hospital Course Discharge Diagnosis: Postoperative hemorrhage from rectal incision dehiscence Hospital Course: Patient came to emergency department passing copious blood per rectum. I witnessed a bowel movement in the emergency department which was a cereal bowl full of clot and bright red blood. Patient was taken directly to the operating room given a general anesthetic and I sutured the rectal incision with running locking Vicryl hemostatic technique. She did have an arterial bleeder in the rectum. Overnight she has had no further bleeding and she is resting comfortably in her chair this morning. She is discharged this morning. Her hemoglobin is 11.2 today it was 14 yesterday. She is discharged to continue her same pre-admission medication and a stool softener. She has an appointment to see Dr. Herrera in 2 days. She has been advised to rest at home for the next several days. Status at Discharge Cognitive/behavioral status at discharge: oriented Functional status at discharge: independent ambulation Overall status at discharge: patient is back to baseline Time Spent with Patient Time spent: Less than 30 minutes Exam Vital Signs (past 8 hours): - 04/21/20 05:00 04/21/20 08:10 04/21/20 08:25 Temperature 97.2 F L 97.6 F Pulse Rate 71 64 73 Respiratory Rate 16 18 17 Blood Pressure 132/56 L 131/77 Pulse Oximetry 97 99 97 Oxygen Delivery Method Room Air Oxygen Flow Rate 0 Objective Labs Result Diagrams: 04/21/20 07:00 04/20/20 14:07 Labs: Laboratory Results - last 24 hr 04/20/20 04/20/20 04/20/20 13:50 14:07 14:07 WBC 9.1 RBC 5.03 Hgb 14.0 Hct 42.0 MCV 83.4 MCH 27.8 MCHC 33.3 RDW 14.4 Plt Count 326 Neut % (Auto) 70.9 Lymph % (Auto) 21.5 L [place] % (Auto) 5.3 Eos % (Auto) 1.9 L Baso % (Auto) 0.4 Neut # (Auto) 6500 Lymph # (Auto) 2000 [place] # (Auto) 500 Eos # (Auto) 200 Baso # (Auto) 0 PT 12.5 INR 1.1 APTT 42 H Sodium Potassium Chloride Carbon Dioxide BUN Creatinine Estimated GFR BUN/Creatinine Ratio Glucose Calcium Total Bilirubin AST ALT Alkaline Phosphatase Total Protein Albumin Globulin Albumin/Globulin Ratio COVID-19 PCR Blood Type AB Positive Antibody Screen Negative 04/20/20 04/20/20 04/21/20 14:07 14:30 07:00 WBC 8.6 RBC 4.05 Hgb 11.2 L Hct 33.8 L MCV 83.6 MCH 27.6 MCHC 33.0 RDW 14.5 Plt Count 292 Neut % (Auto) 68.4 Lymph % (Auto) 21.7 L [place] % (Auto) 5.7 Eos % (Auto) 3.6 Baso % (Auto) 0.6 Neut # (Auto) 5900 Lymph # (Auto) 1900 [place] # (Auto) 500 Eos # (Auto) 300 Baso # (Auto) 100 PT INR APTT Sodium 138 Potassium 4.5 Chloride 106 Carbon Dioxide 26 BUN 22 H Creatinine 0.70 Estimated GFR > 60.0 BUN/Creatinine Ratio 31.4 H Glucose 108 H Calcium 9.2 Total Bilirubin 0.5 AST 32 ALT 25 Alkaline Phosphatase 115 Total Protein 7.4 Albumin 4.3 Globulin 3.1 Albumin/Globulin Ratio 1.4 COVID-19 PCR Negative Blood Type Antibody Screen Discharge Plan Discharge Plan Patient Disposition: Home Discharge orders & Medications Prescriptions: Continued ketorolac 0.5 % drops 1 % EYE-BOTH PRN PRN (Reason: allergies) RF: 0 sertraline 100 mg Tablet 200 mg PO DAILY Qty: 0 RF: 0 levothyroxine 200 mcg Tablet 200 mcg PO DAILY Qty: 0 RF: 0 lamotrigine 100 mg tablet 100 mg PO DAILY RF: 0 dextroamphetamine-amphetamine [Adderall XR] 30 mg Capsule,Extended Release 24hr 30 mg PO DAILY RF: 0 clonazepam 0.5 mg Tablet 0.25 mg PO PRN PRN (Reason: Anxiety) RF: 0 duloxetine 60 mg Capsule,Delayed Release(Dr/Ec) 60 mg PO DAILY RF: 0 oxycodone-acetaminophen [Percocet] 5-325 mg tablet See Rx Instructions .ROUTE .COMPLEX PRN (Reason: pain) Qty: 14 RF: 0 trazodone 50 mg tablet 25 mg PO DAILY RF: 0 Follow up/Referrals: Filemon Dudley MD [Primary Care Provider] - Diet/Activity/Treatments Diet: Diet as Tolerated Activity: rest at home for several days Skin/Wound/Dressing Care Report to your healthcare provider any signs of infection, such as:: increased pain and unusual drainage Discharge Data Primary Care Provider: Filemon Dudley Quality VTE Deep Vein Thrombosis/Pulmonary Embolism Present on Admission: No
--- NOTE | 2020-04-21 10:47 | PC.NURSE ---
Discharge: IV dc'd intact. No bleeding per rectum this morning. Pain well-controlled with Percocet. Reviewed d/c instructions thoroughly and answered patient questions to her satisfaction. She already has f/u scheduled with Dr Herrera, but is going to call him before that or return to hospital with any new s/sx of concern. All personal belongings collected and sent with patient at discharge. Wheeled out to private vehicle by nursing staff.
--- NOTE | 2020-04-21 13:51 | CM.DPC ---
DCP Discharge home Per Surgeon, pt remained stable overnight with no further bleeding and pain controlled and stable for d/c home today with no identified barriers to discharge. Per RN, pt comfortable with d/c home and was wheeled out to POV with belongings, no concerns. Plan: Patient discharged home this morning via POV and no SW needs at this time. MARIBEL Cody
--- NOTE | 2020-06-25 09:27 | ED_ITS ---
HPI - GI Bleed General Chief complaint: GI Bleed Stated complaint: Severe rectal bleeding post-surgery Time Seen by Provider: 04/20/20 13:59 Source: patient Mode of arrival: Ambulatory Limitations: no limitations History of Present Illness HPI Narrative: 60-year-old woman with recent colonoscopy called general surgery with complaints of increased rectal bleeding. Was told to come to the emergency department. In the emergency department she was met and examined by Dr. Ramirez. He determined that she needed an endoscopy and she was transferred from the emergency department to the surgical suite for definitive care prior to any evaluation by emergency room provider. I did not see nor examined this patient. Related Data Home Medications Medication Instructions Recorded Confirmed levothyroxine 200 mcg PO DAILY #0 01/05/10 04/24/20 sertraline 200 mg PO DAILY #0 01/05/10 04/24/20 ketorolac 0.5 % eye drops 1 % EYE-BOTH PRN PRN 08/17/19 04/24/20 lamotrigine 100 mg tablet 100 mg PO DAILY tab 09/27/19 04/24/20 trazodone 50 mg tablet 25 mg PO DAILY 02/22/20 04/24/20 dextroamphetamine-amphetamine 30 mg PO DAILY 03/04/20 04/24/20 [Adderall XR] clonazepam 0.25 mg PO PRN PRN 04/10/20 04/24/20 duloxetine 60 mg PO DAILY 04/15/20 04/24/20 Previous Rx's Medication Instructions Recorded oxycodone-acetaminophen 5 mg-325 See Rx Instructions .ROUTE 04/24/20 mg tablet .COMPLEX PRN #14 tab Allergies Allergy/AdvReac Type Severity Reaction Status Date / Time meperidine [From Demerol] Allergy Mild itching Verified 04/24/20 10:09 Patient History Medical History Abnormal Pap smear of cervix (Acute ~2009) ADHD (Chronic) Anxiety (Chronic) Cataracts, bilateral (Chronic ~2014) Chicken pox (Resolved) Chlamydia (Inactive ~1997) Chronic back pain (Chronic ~1999) Depression (Chronic) Easy bruisability (Acute) Fibroids (Inactive ~2009) Fractures (Resolved) Genital warts (Inactive ~1995) H/O vaginal delivery (Acute) Human papilloma virus (Inactive ~1995) Migraines (Inactive ~1970) OCD (obsessive compulsive disorder) (Chronic) Osteoarthritis (Chronic ~2011) Psoriasis (Chronic ~2017) Restless leg syndrome (Chronic ~1999) Rosacea (Chronic ~2011) Shingles (Inactive) Shoulder pain (Chronic ~1999) Sleep apnea (Acute) Surgical History History of (Acute) History of colonoscopy (Acute) History of tonsillectomy and adenoidectomy (Acute) Hx of arthroscopy of left knee (Acute 2013) Hx of arthroscopy of right knee (Acute 10/2016) Hx of shoulder surgery (Acute) S/P epidural steroid injection (Acute) Family History Father History of heart disease Hypertension Loud snoring Heart disease Mother History of heart disease Mental health problem COPD (chronic obstructive pulmonary disease) Heart disease Depression Anxiety Dementia Grandfather Brain aneurysm Grandmother Cancer Social History household members: significant other Smoking Status: Never smoker alcohol intake: current Smoking Status: Never smoker alcohol intake frequency: holidays/special occasions only Substance Use Type: does not use Exam Initial Vital Signs Initial Vital Signs: Vital Signs Temperature 97.6 F 04/20/20 13:26 Pulse Rate 85 04/20/20 13:26 Respiratory Rate 16 04/20/20 13:26 Blood Pressure 136/70 04/20/20 13:26 Pulse Oximetry 100 04/20/20 13:26 Course Orders Ordered: Discontinued Medications Acetaminophen (Tylenol) 650 mg PO PACUNOW PRN PRN Reason: Pain, Mild (1-3) Clonazepam (Klonopin) 0.25 mg PO PRN PRN PRN Reason: Anxiety Clonazepam (Klonopin) 0.25 mg PO BID PRN PRN Reason: Anxiety Dibucaine (Nupercainal 1% Oint) 1 applic TOP NOW ONE Stop: 04/20/20 17:05 Last Admin: 04/20/20 17:05 Dose: 28 applic Documented by: AKBARRO Docusate Sodium (Colace) 100 mg PO BID LOAN Last Admin: 04/21/20 08:19 Dose: 100 mg Documented by: Admin: 04/20/20 20:55 Dose: 100 mg Documented by: LYNDON Duloxetine HCl (Cymbalta) 60 mg PO DAILY [facility] Last Admin: 04/21/20 08:19 Dose: 60 mg Documented by: WAN Fentanyl (Sublimaze) 0 mcg IV Q5M PRN PRN Reason: Pain, Moderate (4-6) Hydromorphone HCl (Dilaudid) 0 mg IV Q5MIN PRN PRN Reason: Pain, Mild (1-3) Sodium Chloride (Normal Saline 0.9%) 1,000 mls @ 1,000 mls/hr IV BOLUS ONE Stop: 04/20/20 15:10 Last Admin: 04/20/20 18:22 Dose: Not Given Documented by: LYNDON Lactated Ringer's (Lactated Ringers) 1,000 mls @ 100 mls/hr IV NOW ONE Stop: 04/21/20 02:01 Last Infusion: 04/20/20 17:45 Dose: 0 mls/hr Documented by: Admin: 04/20/20 16:04 Dose: 100 mls/hr Documented by: YOUSIF Lactated Ringer's (Lactated Ringers) 1,000 mls @ 42 mls/hr IV CONT [facility] Last Admin: 04/20/20 18:22 Dose: Not Given Documented by: LYNDON Dextrose/Sodium Chloride (Dextrose 5%-0.45% Ns) 1,000 mls @ 84 mls/hr IV CONT [facility] Last Admin: 04/21/20 06:27 Dose: 84 mls/hr Documented by: Infusion: 04/21/20 06:27 Dose: 84 mls/hr Documented by: Admin: 04/20/20 18:52 Dose: 84 mls/hr Documented by: LYNDON Ketorolac Tromethamine (Acular 0.5% Ophth) drops EYE-BOTH PRN PRN PRN Reason: allergies Lamotrigine (Lamictal) 100 mg PO DAILY [facility] Lamotrigine (Lamictal) 100 mg PO BEDTIME [facility] Last Admin: 04/20/20 20:54 Dose: 100 mg Documented by: LYNDON Levothyroxine Sodium (Synthroid) 200 mcg PO QACBREAK [facility] Last Admin: 04/21/20 06:21 Dose: 200 mcg Documented by: DEDE Non-Formulary Medication (Dextroamphetamine-Amphetamine [Adderall Xr]) 30 mg PO DAILY [facility] Last Admin: 04/21/20 08:19 Dose: Not Given Documented by: WAN Ondansetron HCl (Zofran) 4 mg IV NOW PRN PRN Reason: Nausea And Vomiting Oxycodone/Acetaminophen (Percocet 5/325) 1 tab PO PACUNOW PRN PRN Reason: Mild or Moderate Pain Last Admin: 04/20/20 17:35 Dose: 1 tab Documented by: YOUSIF Oxycodone/Acetaminophen (Percocet 5/325) 1 tab PO Q4HR PRN PRN Reason: Pain, Moderate (4-6) Oxycodone/Acetaminophen (Percocet 5/325) 0 tab PO .COMPLEX PRN PRN Reason: pain Oxycodone/Acetaminophen (Percocet 5/325) 1 tab PO Q6H PRN PRN Reason: Pain, Moderate (4-6) Oxycodone/Acetaminophen (Percocet 5/325) 2 tab PO Q6H PRN PRN Reason: Pain, Severe (7-10) Last Admin: 04/21/20 10:44 Dose: 2 tab Documented by: Admin: 04/21/20 06:21 Dose: 2 tab Documented by: Admin: 04/21/20 00:36 Dose: 2 tab Documented by: DEDE Oxycodone/Acetaminophen (Percocet 5/325) 1 tab PO Q6H PRN PRN Reason: Pain, Moderate (4-6) Last Admin: 04/20/20 18:44 Dose: 1 tab Documented by: LYNDON Sertraline HCl (Zoloft) 200 mg PO DAILY [facility] Last Admin: 04/21/20 08:18 Dose: 200 mg Documented by: WAN Sodium Chloride (Normal Saline 0.9% Flush) 10 ml IV PRN PRN PRN Reason: Flush Sodium Chloride (Normal Saline 0.9% Flush) 10 ml IV BID [facility] Last Admin: 04/21/20 09:17 Dose: 10 ml Documented by: WAN Trazodone HCl (Desyrel) 25 mg PO DAILY [facility] Trazodone HCl (Desyrel) 25 mg PO BEDTIME [facility] Last Admin: 04/20/20 20:54 Dose: 25 mg Documented by: LYNDON MDM - GI Bleed Lab Data Result diagrams: 04/21/20 07:00 04/20/20 14:07 Labs: Lab Results 04/20/20 04/20/20 04/20/20 Range/Units 13:50 14:07 14:07 WBC 9.1 (4.5-11.0) X10^3/uL RBC 5.03 (4.0-5.2) X10^6/uL Hgb 14.0 (12.0-16.0) g/dL Hct 42.0 (36-46) % MCV 83.4 (80-100) fL MCH 27.8 (26-34) PG MCHC 33.3 (30-36) % RDW 14.4 (11.6-14.8) % Plt Count 326 (150-400) X10^3/uL Neut % (Auto) 70.9 (50-75) % Lymph % (Auto) 21.5 L (25-40) % Porter % (Auto) 5.3 (3-14) % Eos % (Auto) 1.9 L (2-4) % Baso % (Auto) 0.4 (0-2) % Neut # (Auto) 6500 (7911-7674) /uL Lymph # (Auto) 2000 (7444-0398) /uL Porter # (Auto) 500 (0-900) /uL Eos # (Auto) 200 (0-450) /uL Baso # (Auto) 0 (0-100) /uL PT 12.5 (10.1-12.7) SECONDS INR 1.1 (0.9-1.3) APTT 42 H (26.4-36.2) SECONDS Sodium (137-145) mmol/L Potassium (3.4-5.1) mmol/L Chloride (98-107) mmol/L Carbon Dioxide (22-32) mmol/L BUN (7-17) mg/dL Creatinine (0.52-1.04) mg/dL Estimated GFR (>60) mL/min BUN/Creatinine Ratio (6-22) Glucose (70-100) mg/dL Calcium (8.4-10.2) mg/dL Total Bilirubin (0.2-1.3) mg/dL AST (14-36) IU/L ALT (<35) IU/L Alkaline Phosphatase (38-126) U/L Total Protein (6.3-8.2) g/dL Albumin (3.5-5.0) g/dL Globulin (1.7-4.1) g/dL Albumin/Globulin Ratio (1.0-2.8) Blood Type AB Positive Antibody Screen Negative 04/20/20 Range/Units 14:07 WBC (4.5-11.0) X10^3/uL RBC (4.0-5.2) X10^6/uL Hgb (12.0-16.0) g/dL Hct (36-46) % MCV (80-100) fL MCH (26-34) PG MCHC (30-36) % RDW (11.6-14.8) % Plt Count (150-400) X10^3/uL Neut % (Auto) (50-75) % Lymph % (Auto) (25-40) % Porter % (Auto) (3-14) % Eos % (Auto) (2-4) % Baso % (Auto) (0-2) % Neut # (Auto) (0516-4779) /uL Lymph # (Auto) (0667-8798) /uL Porter # (Auto) (0-900) /uL Eos # (Auto) (0-450) /uL Baso # (Auto) (0-100) /uL PT (10.1-12.7) SECONDS INR (0.9-1.3) APTT (26.4-36.2) SECONDS Sodium 138 (137-145) mmol/L Potassium 4.5 (3.4-5.1) mmol/L Chloride 106 (98-107) mmol/L Carbon Dioxide 26 (22-32) mmol/L BUN 22 H (7-17) mg/dL Creatinine 0.70 (0.52-1.04) mg/dL Estimated GFR > 60.0 (>60) mL/min BUN/Creatinine Ratio 31.4 H (6-22) Glucose 108 H (70-100) mg/dL Calcium 9.2 (8.4-10.2) mg/dL Total Bilirubin 0.5 (0.2-1.3) mg/dL AST 32 (14-36) IU/L ALT 25 (<35) IU/L Alkaline Phosphatase 115 (38-126) U/L Total Protein 7.4 (6.3-8.2) g/dL Albumin 4.3 (3.5-5.0) g/dL Globulin 3.1 (1.7-4.1) g/dL Albumin/Globulin Ratio 1.4 (1.0-2.8) Blood Type Antibody Screen MDM Narrative Medical decision making narrative: Please see Dr Ramirez's H&P for ER evisit and details. Discharge Plan Departure Patient Disposition: Admitted to Surgery Clinical Impression: Acute GI bleeding Discharge Date/Time: 04/20/20 15:58 Admit Date/Time: 04/20/20 14:29 Admit Provider: Quintin Mcclellan
== END 2020-04-21 11:04 | disposition home or self-care (01) ==
LOC: ED 13:59 → AC 15:29
PROVIDERS: Admitting Provider Surgery; Emergency Provider Emergency Medicine; PCP Family Medicine; Referring Provider Emergency Medicine; Visit Provider Surgery
PROC: (CPT 45990; principal; 2020-04-20 16:30)
DX: T81.32XA Disruption of internal operation (surgical) wound, not elsewhere classified, initial encounter (principal); K91.840 Postprocedural hemorrhage of a digestive system organ or structure following a digestive system procedure; Z98.890 Other specified postprocedural states; Z86.010 Personal history of colon polyps; Z11.59 Encounter for screening for other viral diseases
CPT/HCPCS: 45999; 36415; 80053; 85025; 85610; 85730; 86850; 86900; 86901; 87635; 93005; 94762; 96360; 96361; 99284; G0378; J2704; J3010

== ENCOUNTER → 2020-05-31 13:31 | Outpatient (CLI) | payer OTHER, SELFPAY ==
[2020-04-20 15:07] VITALS: BMI 37.8
[2020-05-31 16:42] LABS: Add Manual Diff / Slide Review NO; Basophils Absolute Auto 100 /uL (0-100); Eosinophils Absolute Auto 200 /uL (0-450); Eosinophils Percent Auto 3.6 % (2-4); Hematocrit 38.4 % (36-46); Hemoglobin 12.8 g/dL (12.0-16.0); Lymphocytes Absolute Auto 1300 /uL (1100-4500); Lymphocytes Percent Auto 19.9 % (25-40); Mean Corpuscular HGB Conc 33.2 % (30-36); Mean Corpuscular Hemoglobin 27.8 PG (26-34); Mean Corpuscular Volume 83.5 fL (80-100); Monocytes Absolute Auto 400 /uL (0-900); Neutrophils Absolute Auto 4700 /uL (1500-7000); Neutrophils Percent Auto 69.5 % (50-75); Platelet Count 349 X10^3/uL (150-400); Red Cell Distribution Width 14.5 % (11.6-14.8); White Blood Cell Count 6.7 X10^3/uL (4.5-11.0)
[2020-05-31 18:50] LABS: Carbon Dioxide 31 mmol/L (22-32); Chloride 102 mmol/L (98-107); HEMOLYSIS < 15 (0-50); Sodium 139 mmol/L (137-145)
[2020-05-31 18:52] LABS: Potassium 5.4 mmol/L (3.4-5.1)
--- NOTE | 2020-06-07 02:35 | ED_ITS ---
HPI - General Adult History of Present Illness HPI narrative: documentation for ER visit 04/20/2020 Patient had a rectal adenomatous polyp removed on 04/15/2020. Began having rectal bleeding and called Dr. Mcclellan, surgeon on-call. He asked her to meet him in the emergency department. He was immediately available in the emergency department. She was checked in by ER triage staff and seen and evaluated by Dr. Mcclellan only. Please refer to his H&P of 04/20/2020 for further details Related Data Home Medications Medication Instructions Recorded Confirmed levothyroxine 200 mcg PO DAILY #0 01/05/10 04/24/20 sertraline 200 mg PO DAILY #0 01/05/10 04/24/20 ketorolac 0.5 % eye drops 1 % EYE-BOTH PRN PRN 08/17/19 04/24/20 lamotrigine 100 mg tablet 100 mg PO DAILY tab 09/27/19 04/24/20 trazodone 50 mg tablet 25 mg PO DAILY 02/22/20 04/24/20 dextroamphetamine-amphetamine 30 mg PO DAILY 03/04/20 04/24/20 [Adderall XR] clonazepam 0.25 mg PO PRN PRN 04/10/20 04/24/20 duloxetine 60 mg PO DAILY 04/15/20 04/24/20 Previous Rx's Medication Instructions Recorded oxycodone-acetaminophen 5 mg-325 See Rx Instructions .ROUTE 04/24/20 mg tablet .COMPLEX PRN #14 tab Allergies Allergy/AdvReac Type Severity Reaction Status Date / Time meperidine [From Demerol] Allergy Mild itching Verified 04/24/20 10:09 Patient History Medical History Abnormal Pap smear of cervix (Acute ~2009) ADHD (Chronic) Anxiety (Chronic) Cataracts, bilateral (Chronic ~2014) Chicken pox (Resolved) Chlamydia (Inactive ~1997) Chronic back pain (Chronic ~1999) Depression (Chronic) Easy bruisability (Acute) Fibroids (Inactive ~2009) Fractures (Resolved) Genital warts (Inactive ~1995) H/O vaginal delivery (Acute) Human papilloma virus (Inactive ~1995) Migraines (Inactive ~1970) OCD (obsessive compulsive disorder) (Chronic) Osteoarthritis (Chronic ~2011) Psoriasis (Chronic ~2017) Restless leg syndrome (Chronic ~1999) Rosacea (Chronic ~2011) Shingles (Inactive) Shoulder pain (Chronic ~1999) Sleep apnea (Acute) Surgical History History of (Acute) History of colonoscopy (Acute) History of tonsillectomy and adenoidectomy (Acute) Hx of arthroscopy of left knee (Acute 2013) Hx of arthroscopy of right knee (Acute 10/2016) Hx of shoulder surgery (Acute) S/P epidural steroid injection (Acute) Family History Father History of heart disease Hypertension Loud snoring Heart disease Mother History of heart disease Mental health problem COPD (chronic obstructive pulmonary disease) Heart disease Depression Anxiety Dementia Grandfather Brain aneurysm Grandmother Cancer Social History household members: significant other Smoking Status: Never smoker alcohol intake: current Smoking Status: Never smoker alcohol intake frequency: holidays/special occasions only Substance Use Type: does not use Medical Decision Making Lab Data Result diagrams: 05/31/20 13:36 05/31/20 13:36 Labs: Lab Results 05/31/20 05/31/20 Range/Units 13:36 13:36 WBC 6.7 (4.5-11.0) X10^3/uL RBC 4.60 (4.0-5.2) X10^6/uL Hgb 12.8 (12.0-16.0) g/dL Hct 38.4 (36-46) % MCV 83.5 (80-100) fL MCH 27.8 (26-34) PG MCHC 33.2 (30-36) % RDW 14.5 (11.6-14.8) % Plt Count 349 (150-400) X10^3/uL Neut % (Auto) 69.5 (50-75) % Lymph % (Auto) 19.9 L (25-40) % [place] % (Auto) 6.0 (3-14) % Eos % (Auto) 3.6 (2-4) % Baso % (Auto) 1.0 (0-2) % Neut # (Auto) 4700 (2568-2114) /uL Lymph # (Auto) 1300 (3398-7822) /uL [place] # (Auto) 400 (0-900) /uL Eos # (Auto) 200 (0-450) /uL Baso # (Auto) 100 (0-100) /uL Sodium 139 (137-145) mmol/L Potassium 5.4 H (3.4-5.1) mmol/L Chloride 102 (98-107) mmol/L Carbon Dioxide 31 (22-32) mmol/L Discharge Plan Discharge Med Rec/Prescriptions Prescriptions: No Action ketorolac 0.5 % drops 1 % EYE-BOTH PRN PRN (Reason: allergies) RF: 0 sertraline 100 mg Tablet 200 mg PO DAILY Qty: 0 RF: 0 levothyroxine 200 mcg Tablet 200 mcg PO DAILY Qty: 0 RF: 0 lamotrigine 100 mg tablet 100 mg PO DAILY RF: 0 oxycodone-acetaminophen [Percocet] 5-325 mg tablet See Rx Instructions .ROUTE .COMPLEX PRN (Reason: pain) Qty: 14 RF: 0 dextroamphetamine-amphetamine [Adderall XR] 30 mg Capsule,Extended Release 24hr 30 mg PO DAILY RF: 0 clonazepam 0.5 mg Tablet 0.25 mg PO PRN PRN (Reason: Anxiety) RF: 0 duloxetine 60 mg Capsule,Delayed Release(Dr/Ec) 60 mg PO DAILY RF: 0 trazodone 50 mg tablet 25 mg PO DAILY RF: 0 Discharge Data Primary Care Provider: Filemon Dudley Attending Provider: Mu Jay
== END ==
PROVIDERS: PCP Family Medicine; Referring Provider Orthopaedic Surgery; Visit Provider Orthopaedic Surgery
DX: Z01.812 Encounter for preprocedural laboratory examination (principal); Z01.818 Encounter for other preprocedural examination
CPT/HCPCS: 36415; 80051; 85025

== ENCOUNTER → 2020-07-15 14:59 | Outpatient (CLI) | payer OTHER, SELFPAY ==
[2020-04-20 15:07] VITALS: BMI 37.8
[2020-07-15 16:59] LABS: COVID19 -Nasal RAPID Negative (Negative)
== END ==
PROVIDERS: PCP Family Medicine; Visit Provider Physician Assistant
DX: Z11.59 Encounter for screening for other viral diseases (principal)
CPT/HCPCS: 87635

== ENCOUNTER 2020-07-17 11:03 | Day surgery (SDC) | payer OTHER, SELFPAY ==
[2020-04-20 15:07] VITALS: BMI 37.8
[2020-07-17] VITALS (10 sets, daily range): BP systolic 128–162; BP diastolic 62–90; PULSE 70–75; RESP 14–18; TEMP 35.8–36.6; O2SAT 89–98
[2020-07-17] MEDS: ACETAMINOPHEN 325 MG TABLET 975 MG PO (11:53)
[2020-07-17] MEDS: SCOPOLAMINE 1 PATCH TOP (11:53)
[2020-07-17] MEDS: LACTATED RINGERS 1,000 ML 42 ML IV ×2 (11:56→13:38)
[2020-07-17] MEDS: OXYMETAZOLINE NASAL SPRAY 15 ML 2 SPRAYS NASAL ×4 (12:00→14:06)
--- NOTE | 2020-07-17 12:14 | PM.PREOP ---
Pre-operative Note COVID-19 COVID-19 status: Negative Result date/Date tested (Pos, Neg/Pending): 07/15/20 Interval Note History & Physical reviewed/Exam performed by Physician: Yes Changes to H&P: No
--- NOTE | 2020-07-17 12:14 | PM.OP.1 ---
Operative Date/Time/Diagnoses Date of procedure: 07/17/20 Time of procedure: 14:39 Pre-op diagnosis: Nasal airway obstruction, inferior turbinate hypertrophy, septal deviation, SANTO Post-op diagnosis: same Procedure & Clinicians Procedure: 1. Septoplasty Same procedure as scheduled: No Indications: 60-year-old female on CPAP with the above diagnoses, incompletely managed with medical therapy, presents for the above procedures. Following discussion of the material risks benefits complications and alternatives, she elected to proceed. Surgeon: Doug Chairez Click Yes if Unassisted: Yes Anesthesia Type: General and Local Operative Notes Findings: Caudal septum 2 to 3+ to the right, old fracture with buckling of the residual caudal strut. Right 2-3+ deviation including high and superior. LEFT mid septal flap perforation, low. Significant oozing throughout, eventually partially controlled from remnant of maxillary crest with cautery and bone wax and Floseal, but also from near sphenoid face and medial surface of LEFT IT with Floseal followed by merocel packing soaked with Afrin. Closure Type: primary Specimen(s): none sent Estimated Blood Loss (mL): 550 Blood products transfused: none Procedure in detail: Following identification and confirmation of consent as well as preoperative Afrin nasal spray, the patient was brought to the operating room suite and placed in the supine position. General endotracheal anesthesia was administered. I infiltrated the septum widely bilaterally with 1% lidocaine 1 100,000 epinephrine followed by temporary packing with cotton with Afrin and 4% lidocaine. Following sterile prep and drape, the packing was removed and I performed a right katarina transfixion incision, elevated the right mucoperichondrial and mucoperiosteal flap. I disarticulated near the bony cartilaginous junction and elevated the left mucoperiosteal flap. There was significant oozing from most surfaces and some more pumping vessels from 2 or 3 areas, requiring frequent suctioning and difficult visualization throughout the case. Temporary packing was repeatedly placed soaked in Afrin for control. Deviated portions of the perpendicular plate of the ethmoid and vomer were resected. The residual quadrilateral cartilage was further straightened by trimming it inferiorly as well as reducing the maxillary crest. Bleeding from the maxillary crest remnant anteriorly eventually required suction cautery, bone wax, and extended pressure. A 2 mm strip of cartilage paralleling the residual 1 cm dorsal and caudal strut was resected to further straighten the quadrilateral cartilage. Floseal was used sparingly within the septal envelope to further help hemostasis. The hemitransfixion incision was closed with interrupted 5 0 chromic followed by a running 4 0 plain gut mattress suture to reapproximate the septal flaps. At case completion, 20/1000th of an inch silastic splints were placed bilaterally, sutured anteriorly with a single 4 0 nylon. 8cm merocel sponge packing was placed bilaterally, saturated with Afrin. The procedure completed, sponge and needle counts were correct and she was extubated in the operating room and taken to recovery room in stable condition without known complication. Postoperative care: Nasal saline every hour while awake, Vaseline to the nostrils at all times, fu 2d for possible packing removal.. Humidifier at the bedside blowing on her face. Tylenol alternating with Advil for pain control, oxycodone if necessary for breakthrough pain. Keflex 500mg Po TID while packing in place. Complications: none Post-operative Condition: stable Disposition: same day surgery Plan for aftercare: DC home, use full face CPAP, nasal saline every hour while awake, No irrigations while packing in place, Vaseline or Polysporin to the nostrils at all times. Follow-up in 2 days for possible packing removal, then 7d PO for splint removal. Begin Keflex 500mg TID while packing in place.
--- NOTE | 2020-07-17 12:47 | SUR.OPER ---
Supine on padded OR bed, head on pillow, arm padded and tucked at side, legs uncrossed, safety belt at thigh, tape over blanket over lower legs .
[2020-07-17] MEDS: LIDOCAINE 1% W/EPI 20 ML INJ (12:51)
[2020-07-17] MEDS: LIDOCAINE 4% SOLN 50 ML 20 ML TOP (12:52)
[2020-07-17] MEDS: OXYCODONE IR 5 MG TABLET PO ×2 (14:59→15:26)
--- NOTE | 2020-07-17 16:14 | SUR.PHASEII ---
pt with blood on gauze under nose, MD aware of bleeding and expected. If needed to put afrin on packing and then replace gauze under nose. This was done one time. Sent pt home with gauze and tape and instructed her and her SO on how to change gauze and use afrin but NOT to remove packing. Aware of apt in clinic on wednesday at noon and that they can call office to talk to MD ceiling insulation blower if needed before then. Abx was sent to [facility] in [facility] here and SO aware. Paper Rx sent with pt home for oxy. Pt reports grogginess and moderate SHIN, medicated with 2 oxy and pain tolerable at d/c. Able to walk to bathroom to void prior to d/c. Left in w/c with RN escort to car with SO.
== END 2020-07-17 16:05 | disposition home or self-care (01) ==
PROVIDERS: PCP Student in an Organized Health Care Education/Training Program; Referring Provider Otolaryngology; Visit Provider Otolaryngology
PROC: (CPT 30520; principal; 2020-07-17 12:00)
DX: J34.2 Deviated nasal septum (principal); J34.3 Hypertrophy of nasal turbinates; J34.89 Other specified disorders of nose and nasal sinuses; G47.33 Obstructive sleep apnea (adult) (pediatric)
CPT/HCPCS: 30520; A9270; J0330; J1100; J2250; J2405; J2704; J3010